=== PATIENT | female | born 1940 | race Caucasian/White ===

== ENCOUNTER → 2020-01-17 | Outpatient (CLI) | payer MEDICARE, OTHER ==
--- NOTE | 2020-01-17 14:39 | 2DMMODE ---
[place] [address] 2 D/M-MODE ECHOCARDIOGRAM Name: WILLIAMS SNYDER Room: [facility]#: [id number] Admission: 01/17/20 Attend Phys: Gilberto Tavarez MD Discharge: Date of : 40 Date of Service: 01/17/20 1439 Report #: [id number] THIS REPORT FOR: cc: Breanna Anderson Maggie M. DO Blick, David R. MD [facility] ~ APPROVED REPORT Study performed: 01/17/2020 10:42:56 EXAM: Comprehensive 2D, Doppler, and color-flow Echocardiogram Patient Location: Out-Patient BSA: 1.74 HR: 65 bpm BP: 130/70 mmHg Other Information Study Quality: Good Indications Palpitations 2D Dimensions IVSd: 8.41 (7-11mm) LVOT Diam: 19.58 (18-24mm) LVDd: 33.37 mm PWd: 9.71 (7-11mm) Ascending Ao: 25.31 (22-36mm) LVDs: 21.82 (25-40mm) Aortic Root: 23.69 mm Volumes Left Atrial Volume (Systole) LA ESV Index: 13.40 mL/m2 Aortic Valve AoV Peak Kvng.: 1.14 m/s AO Peak Gr.: 5.22 mmHg LVOT Max P.95 mmHg AO Mean Gr.: 2.58 mmHg LVOT Mean P.07 mmHg LVOT Max V: 0.70 m/s AO V2 VTI: 22.72 cm LVOT Mean V: 0.48 m/s JOAQUIN (VTI): 2.72 cm2 LVOT V1 VTI: 20.55 cm Mitral Valve E/A Ratio: 0.71 [place] [address] 2 D/M-MODE ECHOCARDIOGRAM Name: WILLIAMS SNYDER Room: [facility]#: [id number] Admission: 01/17/20 Attend Phys: Gilberto Tavarez MD Discharge: Date of : 40 Date of Service: 01/17/20 1439 Report #: [id number] MV Decel. Time: 217.55 ms MV E Max Kvng.: 0.54 m/s MV PHT: 63.09 ms MVA (PHT): 3.49 cm2 TDI E/Lateral E': 10.80 E/Medial E': 9.00 Medial E' Kvng.: 0.06 m/s Lateral E' Kvng.: 0.05 m/s Pulmonary Valve PV Peak Kvng.: 0.90 m/s PV Peak Gr.: 3.21 mmHg Left Ventricle The left ventricle is normal size. There is normal LV segmental wall motion. There is normal left ventricular wall thickness. Left ventricular systolic function is normal. The left ventricular ejection fraction is within the normal range. LVEF is 55-60%. Grade I - abnormal relaxation pattern. Right Ventricle The right ventricle is normal size. The right ventricular systolic function is normal. Atria The left atrium size is normal. The right atrium size is normal. Aortic Valve The aortic valve is normal in structure. No aortic regurgitation is present. There is no aortic valvular stenosis. Mitral Valve The mitral valve is normal in structure. There is trace mitral valve regurgitation noted. No evidence of mitral valve stenosis. Tricuspid Valve The tricuspid valve is normal in structure. There is no tricuspid valve regurgitation noted. Pulmonic Valve The pulmonary valve is normal in structure. There is no pulmonic valvular regurgitation. Great Vessels The aortic root is normal in size. IVC [place] [address] 2 D/M-MODE ECHOCARDIOGRAM Name: WILLIAMS SNYDER Jenifer Room: [facility]#: [id number] Admission: 01/17/20 Attend Phys: Gilberto Tavarez MD Discharge: Date of : 40 Date of Service: 01/17/20 1439 Report #: [id number] collapses >50% with inspiration. Pericardium There is no pericardial effusion. <Conclusion> Left ventricular systolic function is normal. The left ventricular ejection fraction is within the normal range. <ELECTRONICALLY SIGNED> By: Gilberto Tavarez MD, [facility] 01/17/20 1439 1439 1439 Gilberto Tavarez MD, [facility] /INF
== END ==
LOC: M.CRD 10:47
PROVIDERS: ATTEND Internal Medicine Cardiovascular Disease
DX: R00.2 Palpitations (principal)

== ENCOUNTER 2020-11-28 10:20 | Inpatient (IN) | payer MEDICARE, OTHER ==
[~2020-11-28] VITALS: Ht 157.5 cm; Wt 70.3 kg
--- NOTE | ~2020-11-28 | PROC ---
[address] [address] PROCEDURE REPORT Name: WILLIAMS SNYDER Room: [address] IN M.R.#: [id number] Admission: 11/28/20 Attend Phys: Edgar Carrasquillo MD Discharge: 11/30/20 Date of : 40 Report #: [id number] THIS REPORT FOR: cc: Breanna Anderson Maggie M. DO [facility],Medical Records Staff ~ For GI report, please see the Provation report in Perceptive 7 content. By: 1456Medical Records Staff VINOD /CHRISTEL
[2020-11-28 10:23] VITALS: BP 153/78
[2020-11-28] MEDS ORDERED: SUPER THERAVIT1 EACH PO (10:28)
[2020-11-28] MEDS ORDERED: OMEPRAZOLE 20 M20 M1 PO (10:28)
[2020-11-28] MEDS ORDERED: CALCIUM500 MG PO (10:28)
[2020-11-28 10:45] LABS: ABSOLUTE EOSINOPHILS 0.1 thou/uL (0.0-0.7); ABSOLUTE LYMPHOCYTES 1.2 thou/uL (0.8-5.3); ABSOLUTE MONOCYTES 0.5 thou/uL (0.0-1.2); ABSOLUTE NEUTROPHILS 4.7 thou/uL (1.6-8.1); BASOPHILS 0.6 %; EOSINOPHILS 1.6 %; HEMATOCRIT 42.9 % (37.0-47.0); LYMPHOCYTES 18.7 %; MCH 31.4 pg (26.0-34.0); MCHC 34.9 g/dL (28.0-37.0); MCV 89.9 fL (80.0-100.0); NUCLEATED RBCS 0 /100WBC; PLATELET COUNT* 237 thou/uL (150-400); POLYS 71.1 %; RBC 4.77 mil/uL (4.20-5.00); RDW-CV 13.1 % (10.5-14.5); WBC 6.6 thou/uL (4.0-11.0)
[2020-11-28 11:02] LABS: CALCIUM 8.8 mg/dL (8.5-10.1); CREATININE 0.8 mg/dL (0.6-1.3); POTASSIUM 3.9 mmol/L (3.5-5.1)
[2020-11-28 11:07] LABS: ALBUMIN 3.6 g/dL (3.4-5.0); TOTAL BILIRUBIN 0.5 mg/dL (<0.1-1.0); TOTAL PROTEIN 7.5 g/dL (6.4-8.2)
[2020-11-28 13:16] VITALS: BP 140/90
--- NOTE | 2020-11-28 15:30 | EKG ---
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1940 Requested By: Ezequiel Ordaz Order Number: [id number] MD: Garfield Rosas Measurements Intervals [place] Rate: 81 P: 27 VT: 157 QRS: -43 QRSD: 101 T: 56 QT: 381 QTc: 443 Interpretive Statements Sinus rhythm Left anterior fascicular block Abnormal R-wave progression, late transition No previous ECG available for comparison Electronically Signed On 11-28-2020 15:30:22 CDT by Garfield Rosas [email or web address] <ELECTRONICALLY SIGNED> By: Garfield Rosas MD, FACC 11/28/20 1530 1038 1038 Garfield Rosas MD, [facility] /EPI
[2020-11-28 16:22] VITALS: BP 131/65
[2020-11-28 19:40] VITALS: BP 121/61
[2020-11-28 23:55] VITALS: BP 107/35
[2020-11-29 04:29] VITALS: BP 124/61
[2020-11-29 04:40] LABS: CALCIUM 8.6 mg/dL (8.5-10.1); CREATININE 0.8 mg/dL (0.6-1.3); POTASSIUM 3.7 mmol/L (3.5-5.1)
[2020-11-29 04:44] LABS: ABSOLUTE EOSINOPHILS 0.2 thou/uL (0.0-0.7); ABSOLUTE LYMPHOCYTES 1.5 thou/uL (0.8-5.3); ABSOLUTE MONOCYTES 0.6 thou/uL (0.0-1.2); ABSOLUTE NEUTROPHILS 3.2 thou/uL (1.6-8.1); BASOPHILS 0.8 %; EOSINOPHILS 2.9 %; HEMATOCRIT 39.4 % (37.0-47.0); HEMOGLOBIN 13.5 gm/dL (12.0-15.0); LYMPHOCYTES 27.5 %; MCH 31.2 pg (26.0-34.0); MCHC 34.2 g/dL (28.0-37.0); MCV 91.1 fL (80.0-100.0); MONOCYTES 10.9 %; MPV 7.5 fl. (7.2-11.1); NUCLEATED RBCS 0 /100WBC; PLATELET COUNT* 215 thou/uL (150-400); POLYS 57.9 %; RBC 4.32 mil/uL (4.20-5.00); RDW-CV 13.5 % (10.5-14.5); WBC 5.5 thou/uL (4.0-11.0)
[2020-11-29 09:43] LABS: URINE BILIRUBIN NEGATIVE (Negative); URINE BLOOD TRACE (Negative); URINE CLARITY CLEAR; URINE COLOR YELLOW; URINE GLUCOSE-RANDOM NEGATIVE (Negative); URINE KETONES NEGATIVE (Negative); URINE LEUKOCYTES-REFLEX TRACE (Negative); URINE NITRITE-REFLEX NEGATIVE (Negative); URINE PROTEIN NEGATIVE (Negative); URINE UROBILINOGEN 0.2 E.U./dl (0.2-1.0)
[2020-11-29 09:54] LABS: BACTERIA-REFLEX 1-9 Few /HPF (None Seen); CASTS None Seen /LPF (None Seen); CRYSTALS None Seen /LPF (None Seen); MUCUS 0-3 Light strn/LPF (None Seen); SQUAMOUS 0-3 Few /LPF (0-3); URINE RBC 0-2 Rare /HPF (0-2); URINE WBC-REFLEX 0-5 Rare /HPF (0-5)
[2020-11-29 15:50] VITALS: BP 125/70
[2020-11-29 19:20] VITALS: BP 120/74
[2020-11-30 04:31] LABS: ABSOLUTE LYMPHOCYTES 0.8 thou/uL (0.8-5.3); ABSOLUTE MONOCYTES 0.6 thou/uL (0.0-1.2); ABSOLUTE NEUTROPHILS 6.4 thou/uL (1.6-8.1); BASOPHILS 0.3 %; EOSINOPHILS 0.1 %; HEMATOCRIT 38.9 % (37.0-47.0); HEMOGLOBIN 13.4 gm/dL (12.0-15.0); LYMPHOCYTES 9.9 %; MCH 31.3 pg (26.0-34.0); MCHC 34.5 g/dL (28.0-37.0); MCV 90.8 fL (80.0-100.0); MONOCYTES 7.4 %; MPV 7.4 fl. (7.2-11.1); NUCLEATED RBCS 0 /100WBC; PLATELET COUNT* 230 thou/uL (150-400); POLYS 82.3 %; RBC 4.29 mil/uL (4.20-5.00); RDW-CV 13.2 % (10.5-14.5); WBC 7.8 thou/uL (4.0-11.0)
[2020-11-30 04:39] LABS: CALCIUM 8.9 mg/dL (8.5-10.1); CREATININE 0.7 mg/dL (0.6-1.3); POTASSIUM 3.7 mmol/L (3.5-5.1)
[2020-11-30 05:30] LABS: % SATURATION 17 % (20-39); IRON 48 ug/dL (50-175)
[2020-11-30 08:00] VITALS: BP 132/68
[2020-11-30 12:00] VITALS: BP 129/78
[2020-11-30 12:21] VITALS: BP 132/68
[2020-11-30] MEDS ORDERED: OMEPRAZOLE40 MG PO (13:15)
[2020-11-30 13:31] VITALS: BP 132/68
--- NOTE | 2020-12-02 08:10 | CON ---
[address] [address] CONSULTATION Name: WILLIAMS SNYDER Room: [address] IN M.R.#: [id number] Admission: 11/28/20 Attend Phys: Edgar Carrasquillo MD Discharge: 11/30/20 Date of : 40 Report #: [id number] THIS REPORT FOR: cc: Breanna Anderson,Catrachito Ramirez DO ~ DOC #: [id number] cc: Henrik Shen MD, Edgar Carrasquillo MD, MD Catrachito Latif DO DATE OF CONSULTATION: 11/29/2020 REFERRING PHYSICIAN: Dr. Edgar Carrasquillo. REASON FOR CONSULTATION: Melena with chest pain. IMPRESSION: 1. Chest discomfort and chest pain with dark tarry stools suggestive of melena -- evaluate for complicated paraesophageal hernia. 2. Abnormal CAT scan with the majority of the stomach within the mediastinum along with part of the transverse colon and splenic flexure. 3. History of iron deficiency anemia requiring, iron infusions in the recent past. RECOMMENDATIONS: 1. We will proceed with upper endoscopy today to delineate the location and status of her stomach and to ensure that she does not have a gastric volvulus or other issues related to the same. 2. Further recommendations will be made thereafter. 3. I have discussed the plans with the patient as well and she is agreeable to same. HISTORY OF PRESENT ILLNESS: The patient is a very pleasant 80-year-old white female who is relatively healthy who presented to the Emergency Room with complaints of dark tarry stools, which has been ongoing for the last few days. She also has problems with epigastric and chest discomfort. She denies any nausea, vomiting, hematemesis or overt bleeding. She is not having any discomfort whatsoever at this time. She has a longstanding history of a hiatal hernia by her report and has had upper endoscopies and upper GI series, the most recent of which was probably performed within the last year in [place], [place]. She has had a hernia for a long time, but cannot recall what was noted with the same. She denies any complaints referable to her lower GI tract including any problems with her bowels or bowel frequency. Her weight has been stable. She has undergone colonoscopies in the past, but it has been many years ago. She does not recall ever having any polyps[place] [address] CONSULTATION Name: LILLIANWILLIAMS Jenifer Room: [address]#: [id number] Admission: 11/28/20 Attend Phys: Edgar Carrasquillo MD Discharge: 11/30/20 Date of : 40 Report #: [id number] Emergency Room for further evaluation and treatment. ALLERGIES: PENICILLIN. MEDICATIONS: Include omeprazole 20 mg once daily, calcium and a multivitamin. PAST MEDICAL HISTORY: Remarkable for history of SVT with previous ablation. She has had previous appendectomy, hysterectomy, cholecystectomy. She had problem with chronic duration of reflux and a previous history of anemia with a need for iron infusions. SOCIAL HISTORY: The patient is . She does not smoke or drink. FAMILY HISTORY: Negative. PHYSICAL EXAMINATION: GENERAL: Pleasant 80-year-old white female, who is awake and alert. HEART: Her cardiopulmonary examination revealed a regular rate and rhythm. LUNGS: Clear. ABDOMEN: Soft and not tender. No rebound or guarding noted. LABORATORY DATA: Her laboratory tests from admission revealed a white count of 6.6, hemoglobin 15.0 and platelet count of 237,000. MCV is 89.9, RDW 13.1. Her complete metabolic panel revealed sodium 139, potassium 3.9, chloride 105, bicarbonate 27. Her BUN is 20, creatinine 0.8 with a GFR of 69. Total bilirubin 0.5, alkaline phosphatase 123, AST 22, and ALT 18. Albumin is 3.6. CT scan of the chest, abdomen and pelvis was performed with IV contrast, which revealed no problems with mesenteric ischemia. She had the majority of her stomach in the mediastinum as well as part of the transverse colon and the splenic flexure. The liver appeared normal. Gallbladder was gone. Spleen and pancreas were normal. There is no evidence for any problems within the colon to my evaluation. She has a previous hysterectomy. With hydration, her hemoglobin overnight went down to 13.5 and her BUN and creatinine are 13 and 0.8 respectively. 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 We need to rule out the possibility that she has a gastric volvulus with possible organoaxial rotation. We will proceed with upper endoscopy today to see what is going on and then figure out what to do from there. I have discussed plans with her as well and she is agreeable to same. DO CHRIST Sauer/YAZAN [address] [address] CONSULTATION Name: WILLIAMS SNYDER Room: [address] IN ..#: [id number] Admission: 11/28/20 Attend Phys: Edgar Carrasquillo MD Discharge: 11/30/20 Date of : 40 Report #: [id number] <ELECTRONICALLY SIGNED> By: Catrachito Covington DO 12/02/2010 3 0Catrachito Covington DO /
== END 2020-11-30 14:00 | disposition home health service (06) | DRG 378 ==
LOC: M.ERS 10:20 → M.TBA-ER 11:25 → M.2W 11:25
PROVIDERS: Family Medicine; Internal Medicine Gastroenterology; ADMIT Internal Medicine; ATTEND Internal Medicine
PROC: 0DJ08ZZ Inspection of Upper Intestinal Tract, Via Natural or Artificial Opening Endoscopic (ICD-10-PCS; principal; 2020-11-29)
DX: K92.2 Gastrointestinal hemorrhage, unspecified (principal); R71.0 Precipitous drop in hematocrit; Z20.822 Contact with and (suspected) exposure to COVID-19; K44.9 Diaphragmatic hernia without obstruction or gangrene; K21.9 Gastro-esophageal reflux disease without esophagitis; Z90.49 Acquired absence of other specified parts of digestive tract; Z90.710 Acquired absence of both cervix and uterus; Z79.899 Other long term (current) drug therapy; Z88.0 Allergy status to penicillin; Z87.11 Personal history of peptic ulcer disease; K31.7 Polyp of stomach and duodenum

== ENCOUNTER 2021-05-16 15:46 | Inpatient (IN) | payer MEDICARE, OTHER ==
[~2021-05-16] VITALS: Ht 157.5 cm; Wt 73.5 kg
--- NOTE | ~2021-05-16 | EKG ---
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
[~2021-05-16 15:46] MED LIST: CALCIUM500 MG PO; OMEPRAZOLE 20 M20 M1 PO; OMEPRAZOLE40 MG PO; SUPER THERAVIT1 EACH PO
[2021-05-16 16:02] VITALS: BP 126/76
[2021-05-16 17:09] LABS: URINE BILIRUBIN NEGATIVE (Negative); URINE BLOOD TRACE (Negative); URINE CLARITY CLEAR; URINE COLOR YELLOW; URINE GLUCOSE-RANDOM NEGATIVE (Negative); URINE KETONES NEGATIVE (Negative); URINE LEUKOCYTES TRACE (Negative); URINE NITRITE NEGATIVE (Negative); URINE PROTEIN NEGATIVE (Negative); URINE SPECIFIC GRAVITY <= 1.005 (1.005-1.030); URINE UROBILINOGEN 0.2 E.U./dl (0.2-1.0)
[2021-05-16 17:20] LABS: BACTERIA 1-9 Few /HPF (None Seen); CASTS None Seen /LPF (None Seen); CRYSTALS None Seen /LPF (None Seen); SQUAMOUS 0-3 Few /LPF (0-3); URINE RBC 0-2 Rare /HPF (0-2); URINE WBC 0-5 Rare /HPF (0-5)
[2021-05-16 17:33] LABS: ABSOLUTE EOSINOPHILS 0.1 thou/uL (0.0-0.7); ABSOLUTE LYMPHOCYTES 1.2 thou/uL (0.8-5.3); ABSOLUTE MONOCYTES 0.8 thou/uL (0.0-1.2); ABSOLUTE NEUTROPHILS 5.7 thou/uL (1.6-8.1); BASOPHILS 0.5 %; EOSINOPHILS 1.8 %; HEMATOCRIT 44.1 % (37.0-47.0); HEMOGLOBIN 14.7 gm/dL (12.0-15.0); LYMPHOCYTES 14.7 %; MCH 29.7 pg (26.0-34.0); MCHC 33.3 g/dL (28.0-37.0); MCV 89.1 fL (80.0-100.0); MONOCYTES 9.9 %; MPV 7.2 fl. (7.2-11.1); NUCLEATED RBCS 0 /100WBC; PLATELET COUNT* 261 thou/uL (150-400); POLYS 73.1 %; RBC 4.95 mil/uL (4.20-5.00); RDW-CV 14.9 % (10.5-14.5); WBC 7.8 thou/uL (4.0-11.0)
[2021-05-16 17:37] LABS: CALCIUM 9.1 mg/dL (8.5-10.1); CREATININE 0.9 mg/dL (0.6-1.3); POTASSIUM 3.8 mmol/L (3.5-5.1)
[2021-05-16 17:42] LABS: TOTAL BILIRUBIN 0.3 mg/dL (<0.1-1.0); TOTAL PROTEIN 7.5 g/dL (6.4-8.2)
[2021-05-16 22:03] VITALS: BP 134/58
[2021-05-17 02:05] VITALS: BP 134/62
[2021-05-17 06:05] VITALS: BP 125/53
[2021-05-17 10:10] VITALS: BP 114/55
--- NOTE | 2021-05-17 11:03 | EKG ---
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 05/17/21 1102 1725 1725 Darshan Miller MD, [facility] /EPI
[2021-05-17 16:25] VITALS: BP 141/60
[2021-05-17 19:45] VITALS: BP 117/60
[2021-05-18 01:47] VITALS: BP 130/68
[2021-05-18 08:00] VITALS: BP 137/74
[2021-05-18 08:32] LABS: HEMATOCRIT 41.8 % (37.0-47.0); HEMOGLOBIN 13.9 gm/dL (12.0-15.0); MCH 31.1 pg (26.0-34.0); MCHC 33.3 g/dL (28.0-37.0); MCV 93.4 fL (80.0-100.0); MPV 7.1 fl. (7.2-11.1); RBC 4.48 mil/uL (4.20-5.00); RDW-CV 14.8 % (10.5-14.5); WBC 4.1 thou/uL (4.0-11.0)
[2021-05-18 09:08] LABS: ALBUMIN 2.6 g/dL (3.4-5.0); CALCIUM 8.8 mg/dL (8.5-10.1); CREATININE 0.8 mg/dL (0.6-1.3); POTASSIUM 3.9 mmol/L (3.5-5.1); TOTAL BILIRUBIN 0.3 mg/dL (<0.1-1.0); TOTAL PROTEIN 6.6 g/dL (6.4-8.2)
[2021-05-18 13:42] VITALS: BP 133/58
[2021-05-18 19:45] VITALS: BP 130/52
[2021-05-19 07:01] LABS: HEMATOCRIT 40.4 % (37.0-47.0); HEMOGLOBIN 13.6 gm/dL (12.0-15.0); MCH 30.2 pg (26.0-34.0); MCHC 33.6 g/dL (28.0-37.0); MCV 89.7 fL (80.0-100.0); MPV 7.2 fl. (7.2-11.1); RBC 4.5 mil/uL (4.20-5.00); RDW-CV 14.8 % (10.5-14.5); WBC 5.2 thou/uL (4.0-11.0)
[2021-05-19 07:19] LABS: ALBUMIN 2.6 g/dL (3.4-5.0); CALCIUM 8.8 mg/dL (8.5-10.1); CREATININE 0.7 mg/dL (0.6-1.3); POTASSIUM 3.9 mmol/L (3.5-5.1); TOTAL BILIRUBIN 0.2 mg/dL (<0.1-1.0); TOTAL PROTEIN 6.5 g/dL (6.4-8.2)
[2021-05-19 08:13] VITALS: BP 124/58
[2021-05-19] MEDS ORDERED: AUGMENTIN 875-1 EACH PO (13:48)
[2021-05-19 16:11] VITALS: BP 155/57
[2021-05-19 17:06] VITALS: BP 155/57
[2021-05-19 20:00] VITALS: BP 167/64
[2021-05-20 08:15] VITALS: BP 166/72
[2021-05-20 13:12] VITALS: BP 167/64
== END 2021-05-20 16:00 | disposition home or self-care (01) | DRG 392 ==
LOC: M.ERS 15:46 → M.TBA-ER 18:51 → M.2W 05-17 16:25 → M.3W 05-18 18:21
PROVIDERS: Internal Medicine; Physician Assistant; ADMIT Internal Medicine; ATTEND Internal Medicine
DX: K57.20 Diverticulitis of large intestine with perforation and abscess without bleeding (principal); K21.9 Gastro-esophageal reflux disease without esophagitis; Z20.822 Contact with and (suspected) exposure to COVID-19; Z90.49 Acquired absence of other specified parts of digestive tract; Z90.710 Acquired absence of both cervix and uterus; Z88.0 Allergy status to penicillin; Z88.1 Allergy status to other antibiotic agents; Z23 Encounter for immunization